=== PATIENT | female | born 1935 | race Caucasian/White ===

== ENCOUNTER 2017-12-20 15:58 | Inpatient (IN) | payer OTHER, MEDICARE ==
[~2017-12-20] VITALS: Ht 160 cm; Wt 44.3 kg
[2017-12-20] VITALS (17 sets, daily range): BP systolic 91–144; BP diastolic 52–100
--- NOTE | ~2017-12-20 | HC ---
[facility] [place] [address] CONSULTATION Name: SHANTELL YO Room #: 216-P [facility] IN M.R.#: [id number] Admission: 12/20/17 Attend Phys: Giancarlo Epps MD Discharge: 01/01/18 Date of : 34 Report #: [id number] THIS REPORT FOR: //name// CC: Giancarlo Epps REASON FOR CONSULTATION: I was asked to evaluate concerning septic shock. HISTORY OF PRESENT ILLNESS: The patient is an 82-year-old, lives at [facility]. Presents to the Emergency Room with a several-week history of progressive shortness of breath. She had had intermittent cough. She presents to the Emergency Room for such symptoms. Denies chest pain, nausea, vomiting, diarrhea, fever or chills. She was a poor historian in the Emergency Room. She was brought in by EMS. She has a history of atrial fibrillation and cardiomyopathy. In the Emergency Room, she was intubated now, on the ventilator, found to be in rapid AFib. Given fluids through the night for suspected sepsis. Urine output has improved some. No diarrhea or vomiting. No report of rash or decubiti. ALLERGIES: None known, although INTOLERANT WITH STEROIDS WITH FLUID RETENTION. MEDICATIONS: Prior to her admission were digoxin; Pradaxa; aspirin; carvedilol; tramadol; was given vancomycin, Zosyn and Levaquin; Cardizem; and amiodarone. PAST MEDICAL HISTORY: Atrial fibrillation, cardiomyopathy, hypertension, spinal stenosis. FAMILY HISTORY: Noncontributory. SOCIAL HISTORY: She does not know about her tobacco use. She does use alcohol. REVIEW OF SYSTEMS: The patient unable to give any review of systems. PHYSICAL EXAMINATION: VITAL SIGNS: Currently afebrile, blood pressure 85-90 systolic with a MAP of 64, heart rate in the 140s, atrial fib, CVP 15 on FIO2 of 60%. GENERAL: The patient does arouse. She does have a right IJ catheter in place. When awakened, seems to be reasonably comfortable. Denies any pain. HEENT: Unremarkable with oral intubation. NECK: Supple. No adenopathy. LUNGS: Crackles heard posteriorly at bases bilaterally. CARDIOVASCULAR: Heart was tachycardic and irregular. ABDOMEN: Soft, nontender, no hepatosplenomegaly or mass. GENITOURINARY: External genitalia unremarkable with indwelling Giron catheter. EXTREMITIES: Unremarkable with no peripheral edema. LABORATORY STUDIES: Sodium 145, potassium 3.6, bicarbonate 23, creatinine 1.6, lactate 3.2 down from 6.6 earlier. Procalcitonin 0.25. CPK 260, AST 2421, ALT [address] [address] CONSULTATION Name: SHANTELL YO Room #: 216-P [facility] IN M.R.#: [id number] Admission: 12/20/17 Attend Phys: Giancarlo Epps MD Discharge: 01/01/18 Date of : 34 Report #: [id number], bilirubin 3.2, alkaline phosphatase 123. Hemoglobin 11.4; platelet count 135,000; white count 19,000 with 88% segs; 3% bands. Urinalysis unremarkable. BNP was 24,000. Chest x-ray, bilateral pulmonary congestion. IMPRESSION: Acute respiratory failure with shock due to sepsis and possibly cardiogenic in nature. She has bilateral pulmonary infiltrates, most consistent with edema. Cannot yet rule out pneumonia. She has acute renal failure, elevated troponin, hepatitis. Cause of her elevated liver enzymes is yet to be determined. Considerations include drugs and alcohol, passive congestion or shock liver. RECOMMENDATION: We will check infectious workup including viral respiratory panel; blood; urine and sputum cultures; urine antigens; hepatitis A, B and C serology; drug screen; and serial enzymes. Continue with broad antibiotic coverage. Full support. Discussed with nursing at the bedside. ADDENDUM. DATE OF CONSULTATION: 12/21/2017. <ELECTRONICALLY SIGNED> By: Jimi Smith MD 05/28/18 1446 0819 0841 Jimi Smith MD /nt
--- NOTE | ~2017-12-20 | CRIT ---
[facility] [place] [address] CRITICAL CARE NOTE Name: SHANTELL YO Room #: 239-P ADM IN M.R.#: [id number] Admission: 12/20/17 Attend Phys: Giancarlo Epps MD Discharge: Date of : 34 Report #: [id number] THIS REPORT FOR: //name// CC: Giancarlo Epps MD DATE OF SERVICE: 12/23/2017 HISTORY OF PRESENT ILLNESS: The patient is a pleasant 82-year-old female who had been asked to see for further evaluation of her elevated liver tests. She originally presented to [facility] with profound sepsis and respiratory failure. Her medical history is notable for atrial fibrillation, congestive heart failure, cardiomyopathy, hypertension, spinal stenosis and history of alcohol abuse. FAMILY HISTORY: Noncontributory. SOCIAL HISTORY: The chart reports decades of alcohol abuse without further detail. MEDICATIONS: On presentation, digoxin, Pradaxa, aspirin, carvedilol, and Ultram. REVIEW OF SYSTEMS: Negative for weight loss, weakness or fatigue. She denies head, eyes, ears, nose or throat complaints. She denies chest pain, chest palpitation, chest pressure, cough, shortness of breath, wheezing, genitourinary, musculoskeletal or neuropsychiatric complaints beyond that mentioned above. PHYSICAL EXAMINATION: GENERAL: The patient is afebrile. VITAL SIGNS: Stable. HEENT: Nonicteric. NECK: No JVD, thyromegaly or bruits. CARDIOVASCULAR: Irregularly irregular. LUNGS: Diminished anteriorly. ABDOMEN: Soft, nondistended, nontender. Normoactive bowel sounds. No hepatosplenomegaly. No stigmata of chronic liver disease. NEUROLOGICAL: Deferred. RECTAL: Deferred. PERTINENT LABORATORY DATA: Include serum chemistry notable for chloride 102, venous bicarbonate 17, BUN 47, creatinine 1.7, AST 24 and 21, ALT 16 and 11, alkaline phosphatase 123. Her total bilirubin on presentation was 3.2. White count 14.5, hemoglobin 12.0, platelet count 150. Her most recent bilirubin is 2.3 and her most recent ALT 701 and AST 1577. INR was 2.0. The rest of her [facility] [address] [place] [address] CRITICAL CARE NOTE Name: SHANTELL YO Room #: 239-P ADM IN M.R.#: [id number] Admission: 12/20/17 Attend Phys: Giancarlo Epps MD Discharge: Date of : 34 Report #: [id number] x-rays and lab work were reviewed. She had abdominal ultrasound showing gallbladder sludge with diffuse gallbladder wall thickening, abdominal ascites. No ductal dilatation. ASSESSMENT AND PLAN: In summary, the patient has a clinical presentation consistent with resolving shock liver. I expect improvement to her baseline over the next 48-72 hours. This is probably just a representation of her systemic sepsis and dehydration and prerenal status. I would recommend following her liver tests every day or every other day and further workup from a hepatic standpoint if the baseline is significantly elevated. At this point, I do not see any evidence of acute cholecystitis or biliary obstruction. We will follow concurrently. Thanks for allowing us to participate in the care of this nice woman. <ELECTRONICALLY SIGNED> By: Domo Archer MD 12/27/17 0919 1400 32 Kirill Nickerson MD /nt
--- NOTE | ~2017-12-20 | 2DMMODE ---
Former[facility] [address] [place] [address] 2 D/M-MODE ECHOCARDIOGRAM Name: SHANTELL YO Room #: 239-P [facility] IN .R.#: [id number] Admission: 12/20/17 Attend Phys: Giancarlo Epps, Discharge: Date of : 34 Date of Service: 12/21/17 1044 Report #: [id number] THIS REPORT FOR: //name// APPROVED REPORT Study performed: 12/21/2017 09:45:13 EXAM: Comprehensive 2D, Doppler, and color-flow Echocardiogram Patient Location: ICU Room #: 239 Status: routine BSA: 1.49 HR: 104 bpm BP: 107/62 mmHg Other Information Study Quality: Good Indications Atrial Fibrillation Dyspnea Hypertension/HDD 2D Dimensions RVDd: 42.17 mm LVEF(%): 12.69 (>50%) IVSd: 10.01 (7-11mm) LVOT Diam: 18.98 (18-24mm) LVDd: 44.66 mm PWd: 10.05 (7-11mm) Ascending Ao: 36.06 (22-36mm) LVDs: 42.16 (25-40mm) Aortic Root: 29.47 mm IVC: 24.00 mm Livingston's LVEF: 12.69 % Volumes Left Atrial Volume (Systole) Single Plane 4CH: 51.89 mL Single Plane 2CH: 63.85 mL LA ESV Index: 47.00 mL/m2 Aortic Valve AoV Peak Teodoro.: 1.47 m/s AO Peak Gr.: 8.68 mmHg LVOT Max P.36 mmHg LVOT Max V: 0.73 m/s AN Vmax: 1.39 cm2 AI Vmax: 3.54 m/s AI [place]: 2.01 m/s2 AI PHT: 512.78 ms Formerly [facility] [employer] [place] [address] 2 D/M-MODE ECHOCARDIOGRAM Name: SHANTELL YO Room #: 239-P [facility] IN M.R.#: [id number] Admission: 12/20/17 Attend Phys: Giancarlo Epps, Discharge: Date of : 34 Date of Service: 12/21/17 1044 Report #: [id number] Pulmonary Valve PV Peak Teodoro.: 0.79 m/s PV Peak Gr.: 2.50 mmHg Tricuspid Valve TR Peak Teodoro.: 2.86 m/s TR Peak Gr.: 32.77 mmHg PA Pressure: 47.00 mmHg Left Ventricle The left ventricle is normal size. There is global hypokinesis of the left ventricle. There is normal left ventricular wall thickness. Left ventricular ejection fraction is severely decreased. LVEF is 15-20%. This study is not technically sufficient to allow evaluation of the LV diastolic function due to atrial fibrillation. Right Ventricle Right ventricle is at the upper limits of normal. Right ventricle is hypokinetic. Atria Left atrium is dilated. Right atrium is dilated. Aortic Valve The aortic valve is normal in structure. Aortic valve is calcified. Mild to moderate aortic regurgitation. There is no aortic valvular stenosis. Mitral Valve The mitral valve is normal in structure. There is mitral annular calcification. Mild to moderate mitral regurgitation. No evidence of mitral valve stenosis. Tricuspid Valve The tricuspid valve is normal in structure. There is moderate tricuspid regurgitation. Estimated PAP 47 mmHg. There is moderate pulmonary hypertension. Pulmonic Valve The pulmonary valve is normal in structure. Trace pulmonic regurgitation. Great Vessels The aortic root is normal in size. The inferior vena cava is dilated with no inspiratory collapse. [facility] [address] [place] [address] 2 D/M-MODE ECHOCARDIOGRAM Name: SHANTELL YO Room #: 239-P [facility] IN .R.#: [id number] Admission: 12/20/17 Attend Phys: Giancarlo Epps, Discharge: Date of : 34 Date of Service: 12/21/17 1044 Report #: [id number] Pericardium There is no pericardial effusion. <Conclusion> The left ventricle is normal size. LVEF is 15-20%. There is global hypokinesis of the left ventricle. Right ventricle is at the upper limits of normal. Left atrium is dilated. Right atrium is dilated. The aortic valve is normal in structure. Aortic valve is calcified. Mild to moderate aortic regurgitation. The mitral valve is normal in structure. There is mitral annular calcification. Mild to moderate mitral regurgitation. The tricuspid valve is normal in structure. There is moderate tricuspid regurgitation. Estimated PAP 47 mmHg. There is moderate pulmonary hypertension. There is no pericardial effusion. <ELECTRONICALLY SIGNED> By: Herrera Zamora MD 12/21/17 1044 1044 1044 Herrera Zamora MD /INF
--- NOTE | ~2017-12-20 | HC ---
[facility] [address] [place] [address] CONSULTATION Name: SRINATHSHANTELL Room #: 216-P [facility] IN M.R.#: [id number] Admission: 12/20/17 Attend Phys: Giancarlo Epps MD Discharge: 01/01/18 Date of : 34 Report #: [id number] THIS REPORT FOR: //name// CC: Giancarlo Epps DATE OF SERVICE: 12/21/2017 ADDENDUM. DATE OF CONSULTATION: 12/21/2017. <ELECTRONICALLY SIGNED> By: Jimi Smith MD 05/09/18 2033 1127 1217 Jimi Smith MD /nt
--- NOTE | ~2017-12-20 | EKG ---
[address] [address] ELECTROCARDIOGRAM REPORT Name: SHANTELL YO Room #: 239-P ADM IN M.R.#: [id number] Admission: 12/20/17 Attend Phys: Giancarlo Epps MD Discharge: Date of : 34 Report #: [id number] THIS REPORT FOR: //name// [facility] Test Date: 2017-12-24 Test Time: 03:48:45 Pat Name: SHANTELL YO Department: Room: 239 P Gender: F Manager Critical Care: Marilee Thompson : 1935 Requested By: Himanshu Harris Order Number: [id number] MD: Ander Nguyen Measurements Intervals [place] Rate: 74 P: 42 [place]: 176 QRS: -37 QRSD: 135 T: 226 QT: 579 QTc: 643 Interpretive Statements Sinus rhythm Atrial premature complexes in couplets Compared to ECG 12/22/2017 22:05:42 Atrial premature complex(es) now present Electronically Signed On 12-24-2017 10:25:22 SECURITIES CONSULTANT by Ander Nguyen [email or web address] <ELECTRONICALLY SIGNED> By: Ander Nguyen MD 12/24/17 1025 0348 0348 Ander Nguyen MD /EPI
--- NOTE | ~2017-12-20 | HC ---
[facility] [place] [employer] [place] [address] CONSULTATION Name: SHANTELL YO Room #: 239-P ADM IN M.R.#: [id number] Admission: 12/20/17 Attend Phys: Giancarlo Epps MD Discharge: Date of : 34 Report #: [id number] THIS REPORT FOR: //name// CC: Giancarlo Epps DATE OF SERVICE: 12/20/2017 REASON FOR CONSULTATION: Acute respiratory failure. Forty minutes critical care time. IMPRESSION: 1. Acute respiratory failure. 2. Sepsis. 3. Atrial fibrillation with rapid ventricular response. 4. Bilateral pulmonary infiltrates. 5. Acute kidney injury. 6. Elevated D-dimer. 7. Elevated troponin. 8. Encephalopathy. 9. Coagulopathy. PLAN: 1. ICU protocol. 2. Ventilator protocol. 3. Adjust ventilator. 4. PICC line to monitor status. 5. ID consult. 6. Cardiology to see. 7. Aerosol therapy. HISTORY OF PRESENT ILLNESS: An 82-year-old female comes in with 2 days of worsening shortness of breath, peripheral edema and cough. Resides at [facility]. No nausea or vomiting. Positive history in 2013, had alcohol withdrawal, atrial fibrillation with rapid ventricular response, hypertension, COPD and possible aspiration pneumonia. ALLERGIES: TO CORTICOSTEROIDS AND SEDATION. HOME MEDICATIONS: Included digoxin, Pradaxa, aspirin, Coreg and tramadol. SOCIAL HISTORY: Positive ETOH per chart. REVIEW OF SYSTEMS: Unobtainable. However, history of spinal stenosis, syncope and hypertension. [facility] [place] [address] CONSULTATION Name: SHANTELL YO Room #: 239- ADM IN M.R.#: [id number] Admission: 12/20/17 Attend Phys: Giancarlo Epps MD Discharge: Date of : 34 Report #: [id number] FAMILY HISTORY: Unobtainable. PHYSICAL EXAMINATION: GENERAL: On exam, the patient intubated. VITAL SIGNS: Temperature 97.8, pulse fluctuating 100s to 140s, respirations 20 and BP 105/66. Intubated. LUNGS: Crackles bilaterally. HEART: Irregular. ABDOMEN: Bowel sounds present. EXTREMITIES: Showed edema, sedated. LABORATORY DATA: Procalcitonin 0.25. INR 2, PTT 30. A pH of 7.0166, pCO2 of 43 and pO2 of 58 on 100%, rate of 14, tidal volume 500, PEEP of 5. U/A showed bacteria 1-9. CMP showed SGOT 2421, SGPT 611 and alkaline phosphatase 123. BUN 47 and creatinine 1.7. Lactate 8.2. D-dimer 2.8. ProBNP 24,146. Influenza negative. Chest x-ray, bilateral infiltrates. White count 13.8, hemoglobin 13.4 and platelets 185,000. <ELECTRONICALLY SIGNED> By: Regla Fagan MD 12/21/17 1941 1905 0000 Regla Fagan MD /nt
--- NOTE | ~2017-12-20 | EKG ---
[place] [address] [address] [place] [address] ELECTROCARDIOGRAM REPORT Name: SHANTELL YO Room #: 239-P ADM IN M.R.#: [id number] Admission: 12/20/17 Attend Phys: Giancarlo Epps MD Discharge: Date of : 34 Report #: [id number] THIS REPORT FOR: //name// [facility] ED Test Date: 2017-12-20 Test Time: 16:06:03 Pat Name: SHANTELL YO Department: Room: 239 P Gender: F Crossbow Maker: KATY : 1935 Requested By: Giancarlo Epps Order Number: [id number] MD: Demario Kingsley Measurements Intervals [place] Rate: 167 P: 0 [place]: 112 QRS: -53 QRSD: 123 T: 113 QT: 295 QTc: 492 Interpretive Statements Atrial fibrillation with a rapid ventricular response Nonspecific IVCD with LAD Compared to ECG 01/27/2014 07:48:54 Intraventricular conduction delay now present Electronically Signed On 12-21-2017 15:58:46 AUTOMATIC CLIPPER AND STRIPPER by Demario Kingsley [email or web address] <ELECTRONICALLY SIGNED> By: Demario Kingsley MD, [facility] 12/21/17 1558 1606 160 Demario Kingsley MD, [facility] /EPI
--- NOTE | ~2017-12-20 | D ---
[facility] [address] [place] [address] DISCHARGE SUMMARY Name: SHANTELL YO Room #: 216-P [facility] IN M.R.#: [id number] Admission: 12/20/17 Attend Phys: Giancarlo Epps MD Discharge: 01/01/18 Date of : 34 Report #: [id number] THIS REPORT FOR: //name// CC: Giancarlo Epps DATE OF SERVICE: 01/01/2018 ADMIT DIAGNOSES: Severe sepsis, liver failure, acute kidney injury. DISCHARGE DIAGNOSES: Severe sepsis, liver failure, acute kidney injury. The patient was admitted with the above diagnoses of sepsis and JARED. DICTATION ENDS HERE. <ELECTRONICALLY SIGNED> By: Giancarlo Epps MD 03/10/18 0803 0740 1143 Giancarlo Epps MD /nt
--- NOTE | ~2017-12-20 | EKG ---
[address] [address] ELECTROCARDIOGRAM REPORT Name: SHANTELL YO Room #: 239-P ADM IN M.R.#: [id number] Admission: 12/20/17 Attend Phys: Giancarlo Epps MD Discharge: Date of : 34 Report #: [id number] THIS REPORT FOR: //name// [facility] Test Date: 2017-12-22 Test Time: 22:05:42 Pat Name: SHANTELL YO Department: Room: 239 P Gender: F Advanced Developer: MAURICE : 1935 Requested By: Giancarlo Epps Order Number: [id number] MD: Ander Nguyen Measurements Intervals [place] Rate: 143 P: [place]: QRS: -44 QRSD: 119 T: 156 QT: 326 QTc: 503 Interpretive Statements Possible Atrial fibrillation Baseline wander making interpretation challenging Compared to ECG 12/21/2017 05:49:10 Electronically Signed On 12-23-2017 13:26:40 MAILING MACHINE OPERATOR by Ander Nguyen [email or web address] <ELECTRONICALLY SIGNED> By: Ander Nguyen MD 12/23/17 1326 04 04 Ander Nguyen MD /YAHIR
--- NOTE | ~2017-12-20 | EKG ---
[place] [address] [facility] [address] [place] [address] ELECTROCARDIOGRAM REPORT Name: SHANTELL YO Room #: 239-P ADM IN M.R.#: [id number] Admission: 12/20/17 Attend Phys: Giancarlo Epps MD Discharge: Date of : 34 Report #: [id number] THIS REPORT FOR: //name// [facility] ED Test Date: 2017-12-20 Test Time: 16:08:54 Pat Name: SHANTELL YO Department: Room: 239 Gender: F Commercial Real Estate Assistant: hans : 1935 Requested By: Damaso Valentino Order Number: [id number] MD: Demario Kingsley Measurements Intervals [place] Rate: 168 P: 31 [place]: 152 QRS: -52 QRSD: 125 T: 117 QT: 299 QTc: 500 Interpretive Statements Atrial fibrillation with a rapid ventricular response Left bundle branch block Compared to ECG 01/27/2014 07:48:54 Heart rate has increased left bundle branch block is now present Electronically Signed On 12-21-2017 8:10:39 LEGAL RECOVERY SPECIALIST by Demario Kingsley [email or web address] <ELECTRONICALLY SIGNED> By: Demario Kingsley MD, [facility] 12/21/17 0810 1608 1608 Demario Kingsley MD, [facility] /EPI
--- NOTE | ~2017-12-20 | EKG ---
[place] [address] [address] [place] [address] ELECTROCARDIOGRAM REPORT Name: SHANTELL YO Room #: 239-P ADM IN M.R.#: [id number] Admission: 12/20/17 Attend Phys: Giancarlo Epps MD Discharge: Date of : 34 Report #: [id number] THIS REPORT FOR: //name// [facility] Test Date: 2017-12-21 Test Time: 05:49:10 Pat Name: SHANTELL YO Department: Room: 239 P Gender: F Assistant Department Manager: Marilee Thompson : 1935 Requested By: Herrera Zamora Order Number: [id number] MD: Demario Kingsley Measurements Intervals [place] Rate: 161 P: 0 [place]: 130 QRS: -65 QRSD: 122 T: 102 QT: 344 QTc: 563 Interpretive Statements Wide-QRS tachycardia IVCD Compared to ECG 01/27/2014 07:48:54 Atrial fibrillation no longer present Atrial fibrillation is no longer present Electronically Signed On 12-21-2017 8:44:56 BACTERIOLOGIST FOOD by Demario Kingsley [email or web address] <ELECTRONICALLY SIGNED> By: Demario Kingsley MD, [facility] 12/21/17 0844 0549 0549 Demario Kingsley MD, [facility] /EPI
[~2017-12-20 15:58] MED LIST: ACETAMINOPHEN325 M1 PO; ADULT LOW DOSE81 MG PO; ALBUTEROL2.5 MG/31 INH; ASPIRIN325 PO; B COMPLEX-VITA1 EACH PO; CARVEDILOL6.25 MG PO; CLONIDINE0.1 PO; COREG OR; COREG PO; COUMADIN 5 MG TA5 M1 PO; DESYREL50 MG PO; DILTIAZEM 24HR180 MG PO; DILTIAZEM ER240 M1 PO; DITROPAN XL5 M1 PO; FOSAMAX 70 MG T70 M1 PO; LANOXIN 0.120.125 M1 PO; LISINOPRIL20 MG PO; LISINOPRIL5 MG PO; MUCINEX600 MG PO; MULTIVITAMINS PO; NORCO 5-325 TA1 EACH PO; ONDANSETRON HCL4 M3 PO; PRADAXA150 MG OR; PRADAXA75 MG PO; QUETIAPINE FUMA25 MG PO; TRAMADOL 50 MG50 MG PO; TRIPLE ANTIBIO1 EACH TOP; VITAMIN B-1100 M1 PO; VITAMINC500 PO; [UNRECOGNIZED DRUG - CODE] PO
[2017-12-20 16:23] LABS: HEMATOCRIT 42.3 % (37.0-47.0); HEMOGLOBIN 13.4 gm/dL (12.0-15.0); MCH 27.7 pg (26.0-34.0); MCHC 31.7 g/dL (28.0-37.0); MCV 87.4 fL (80.0-100.0); RBC 4.83 mil/uL (4.20-5.00); WBC 13.8 thou/uL (4.0-11.0)
[2017-12-20 16:33] LABS: CALCIUM 9.5 mg/dL (8.5-10.1); CREATININE 1.7 mg/dL (0.6-1.0); POTASSIUM 4.7 mmol/L (3.5-5.1)
[2017-12-20 16:51] LABS: ALBUMIN 3.6 g/dL (3.4-5.0); TOTAL BILIRUBIN 3.2 mg/dL (<0.1-1.0); TOTAL PROTEIN 6.9 g/dL (6.4-8.2)
[2017-12-20 16:56] LABS: TROPONIN-I 2.79 ng/mL (<0.06)
[2017-12-20 17:18] LABS: URINE BILIRUBIN 2+ (Negative); URINE BLOOD TRACE (Negative); URINE CLARITY CLEAR; URINE COLOR YELLOW; URINE GLUCOSE-RANDOM* NEGATIVE (Negative); URINE KETONES TRACE (Negative); URINE LEUKOCYTES-REFLEX NEGATIVE (Negative); URINE NITRITE-REFLEX NEGATIVE (Negative); URINE PROTEIN (DIPSTICK) 2+ (Negative); URINE SPECIFIC GRAVITY >= 1.030 (1.005-1.035)
[2017-12-20 17:26] LABS: ICTOTEST (BILI CONFIRMATORY) Positive (Negative)
[2017-12-20 17:36] LABS: BACTERIA-REFLEX 1-9 Few /HPF (None Seen); COARSE GRANULAR CASTS 0-3 Few /LPF (None Seen); CRYSTALS None Seen /LPF (None Seen); HYALINE CASTS >10 Many /LPF (None Seen); SQUAMOUS 4-10 Moderate /LPF (0-3); URINE RBC 0-2 Rare /HPF (0-2); URINE WBC-REFLEX 0-5 Rare /HPF (0-5)
[2017-12-20 18:16] LABS: BE(vivo) -17.8 mmol/L (-2 to +3); PCO2 42.7 mmHg (35.0-45.0); PO2 57.8 mmHg (80.0-100.0); sO2 77.8 % (92.0-98.0)
[2017-12-20 18:17] LABS: pH 7.066 (7.360-7.450)
[2017-12-20 18:24] LABS: APTT 30.3 Seconds (24.5-32.8); FIBRINOGEN 192.7 mg/dL (210-360); PROTIME 20.2 Seconds (9.3-11.4)
[2017-12-20 21:51] LABS: HEMATOCRIT 37.7 % (37.0-47.0); HEMOGLOBIN 11.8 gm/dL (12.0-15.0); MCV 88.5 fL (80.0-100.0); RBC 4.26 mil/uL (4.20-5.00)
[2017-12-20 21:53] LABS: MCH 27.6 pg (26.0-34.0); MCHC 31.2 g/dL (28.0-37.0); PLATELET COUNT 145 thou/uL (150-400); RDW 16.6 % (10.5-14.5); WBC 19.5 thou/uL (4.0-11.0)
[2017-12-20 21:58] LABS: CALCIUM 7.7 mg/dL (8.5-10.1); CREATININE 1.8 mg/dL (0.6-1.0); POTASSIUM 4.3 mmol/L (3.5-5.1)
[2017-12-20 22:17] LABS: ABSOLUTE NEUTROPHILS 16.6 thou/uL (1.4-8.2)
[2017-12-20 22:18] LABS: BURR CELLS 2+; SCHISTOCYTES 1+
[2017-12-20 22:19] LABS: ANISOCYTOSIS 1+
[2017-12-20 22:56] LABS: BE(vivo) -12.2 mmol/L (-2 to +3); HCO3 13.6 mmol/L (22.0-26.0); PO2 234.9 mmHg (80.0-100.0); sO2 99.4 % (92.0-98.0)
[2017-12-21] VITALS (90 sets, daily range): BP systolic 77–146; BP diastolic 44–125
[2017-12-21 01:06] LABS: CALCIUM 7.5 mg/dL (8.5-10.1); CREATININE 1.7 mg/dL (0.6-1.0); POTASSIUM 3.8 mmol/L (3.5-5.1)
[2017-12-21 04:48] LABS: ABSOLUTE NEUTROPHILS 16.9 thou/uL (1.4-8.2); BASOPHILS 0.5 % (0.0-2.0); EOSINOPHILS 0.3 % (0.0-3.0); HEMATOCRIT 36.3 % (37.0-47.0); HEMOGLOBIN 11.4 gm/dL (12.0-15.0); LYMPHOCYTES 3.3 % (24.0-44.0); MCH 27.6 pg (26.0-34.0); MCHC 31.4 g/dL (28.0-37.0); PLATELET COUNT 135 thou/uL (150-400); POLYS 88.9 % (36.0-66.0); RBC 4.12 mil/uL (4.20-5.00); RDW 15.8 % (10.5-14.5)
[2017-12-21 04:56] LABS: CALCIUM 7.4 mg/dL (8.5-10.1); CREATININE 1.6 mg/dL (0.6-1.0); POTASSIUM 3.6 mmol/L (3.5-5.1)
[2017-12-21 20:23] LABS: AMP/METHAMP Negative (Negative); BARBITURATES Negative (Negative); BENZODIAZEPINES POSITIVE (Negative); COCAINE Negative (Negative); METHADONE Negative (Negative); OPIATES POSITIVE (Negative); PCP Negative (Negative)
[2017-12-22] VITALS (74 sets, daily range): BP systolic 80–144; BP diastolic 50–112
[2017-12-22 01:06] LABS: HAV IgM AB (ANTI-HAV IgM) Negative (Negative); HEPATITIS B SURFACE AG Negative (Negative); HEPATITIS C VIRUS AB 0.2 (0.0-0.9)
[2017-12-22 05:02] LABS: ABSOLUTE NEUTROPHILS 15.6 thou/uL (1.4-8.2); BASOPHILS 0.4 % (0.0-2.0); EOSINOPHILS 0.2 % (0.0-3.0); HEMATOCRIT 36.8 % (37.0-47.0); HEMOGLOBIN 11.7 gm/dL (12.0-15.0); LYMPHOCYTES 5.2 % (24.0-44.0); MCH 27.6 pg (26.0-34.0); MCHC 31.9 g/dL (28.0-37.0); MCV 86.3 fL (80.0-100.0); MONOCYTES 7.5 % (1.0-8.0); PLATELET COUNT 161 thou/uL (150-400); POLYS 86.7 % (36.0-66.0); RBC 4.26 mil/uL (4.20-5.00); RDW 15.5 % (10.5-14.5)
[2017-12-22 09:01] LABS: BE(vivo) -1.9 mmol/L (-2 to +3); HCO3 20.9 mmol/L (22.0-26.0); PCO2 30.3 mmHg (35.0-45.0); PO2 74.9 mmHg (80.0-100.0); pH 7.457 (7.360-7.450); sO2 95.9 % (92.0-98.0)
[2017-12-22 22:48] LABS: CALCIUM 8.2 mg/dL (8.5-10.1); CREATININE 1.8 mg/dL (0.6-1.0); POTASSIUM 3.2 mmol/L (3.5-5.1)
[2017-12-23] VITALS (21 sets, daily range): BP systolic 83–130; BP diastolic 55–99
[2017-12-23 05:27] LABS: BE(vivo) -0.3 mmol/L (-2 to +3); HCO3 22.8 mmol/L (22.0-26.0); PCO2 32.7 mmHg (35.0-45.0); PO2 108.2 mmHg (80.0-100.0); pH 7.462 (7.360-7.450); sO2 98.2 % (92.0-98.0)
[2017-12-23 06:34] LABS: ABSOLUTE NEUTROPHILS 12.4 thou/uL (1.4-8.2); BASOPHILS 0.2 % (0.0-2.0); EOSINOPHILS 0.1 % (0.0-3.0); HEMATOCRIT 37.7 % (37.0-47.0); LYMPHOCYTES 4.2 % (24.0-44.0); MCH 27.2 pg (26.0-34.0); MCHC 31.7 g/dL (28.0-37.0); MCV 85.5 fL (80.0-100.0); MONOCYTES 10.3 % (1.0-8.0); PLATELET COUNT 150 thou/uL (150-400); POLYS 85.2 % (36.0-66.0); RBC 4.41 mil/uL (4.20-5.00); RDW 15.9 % (10.5-14.5); WBC 14.5 thou/uL (4.0-11.0)
[2017-12-23 06:49] LABS: ALBUMIN 2.5 g/dL (3.4-5.0); CALCIUM 7.8 mg/dL (8.5-10.1); CREATININE 1.6 mg/dL (0.6-1.0); TOTAL BILIRUBIN 2.3 mg/dL (<0.1-1.0); TOTAL PROTEIN 5.4 g/dL (6.4-8.2)
[2017-12-23 06:50] LABS: POTASSIUM 2.9 mmol/L (3.5-5.1)
[2017-12-23 09:32] LABS: BE(vivo) -0.1 mmol/L (-2 to +3); HCO3 22.9 mmol/L (22.0-26.0); PCO2 32.4 mmHg (35.0-45.0); PO2 106.9 mmHg (80.0-100.0); pH 7.467 (7.360-7.450); sO2 98.2 % (92.0-98.0)
[2017-12-23 14:10] LABS: MAGNESIUM 2.6 mg/dL (1.8-2.4); POTASSIUM 3.7 mmol/L (3.5-5.1)
[2017-12-24] VITALS (18 sets, daily range): BP systolic 100–142; BP diastolic 57–85
[2017-12-24 05:27] LABS: HEMATOCRIT 37.4 % (37.0-47.0); HEMOGLOBIN 12.1 gm/dL (12.0-15.0); MCH 27.5 pg (26.0-34.0); MCHC 32.3 g/dL (28.0-37.0); MCV 85.4 fL (80.0-100.0); RBC 4.38 mil/uL (4.20-5.00); WBC 9.9 thou/uL (4.0-11.0)
[2017-12-24 06:11] LABS: CALCIUM 8.4 mg/dL (8.5-10.1)
[2017-12-24 06:21] LABS: CREATININE 1.7 mg/dL (0.6-1.0)
[2017-12-25] VITALS (23 sets, daily range): BP systolic 95–168; BP diastolic 58–130
[2017-12-25 05:25] LABS: CALCIUM 8.8 mg/dL (8.5-10.1); CREATININE 1.7 mg/dL (0.6-1.0); POTASSIUM 3.1 mmol/L (3.5-5.1)
[2017-12-25 05:38] LABS: HEMATOCRIT 37.4 % (37.0-47.0); MCH 27.2 pg (26.0-34.0); MCV 84.9 fL (80.0-100.0); RBC 4.4 mil/uL (4.20-5.00); RDW 15.8 % (10.5-14.5); WBC 11.3 thou/uL (4.0-11.0)
[2017-12-26] VITALS (26 sets, daily range): BP systolic 97–156; BP diastolic 41–122
[2017-12-26 00:06] LABS: ADENOVIRUS Negative (Negative); INFLUENZA A Negative (Negative); INFLUENZA B Negative (Negative); METAPNEUMOVIRUS Negative (Negative); PARAINFLUENZA 1 Negative (Negative); PARAINFLUENZA 2 Negative (Negative); PARAINFLUENZA 3 Negative (Negative); RHINOVIRUS Negative (Negative); RSV A Negative (Negative); RSV B Negative (Negative)
[2017-12-26 07:14] LABS: HEMATOCRIT 40.4 % (37.0-47.0); HEMOGLOBIN 13.1 gm/dL (12.0-15.0); MCH 27.4 pg (26.0-34.0); MCHC 32.4 g/dL (28.0-37.0); MCV 84.5 fL (80.0-100.0); RBC 4.79 mil/uL (4.20-5.00); RDW 15.9 % (10.5-14.5); WBC 10.9 thou/uL (4.0-11.0)
[2017-12-26 07:27] LABS: ALBUMIN 2.8 g/dL (3.4-5.0); TOTAL BILIRUBIN 2.8 mg/dL (<0.1-1.0); TOTAL PROTEIN 6.1 g/dL (6.4-8.2)
[2017-12-26 07:38] LABS: CALCIUM 9.3 mg/dL (8.5-10.1); CREATININE 1.7 mg/dL (0.6-1.0); POTASSIUM 3.5 mmol/L (3.5-5.1)
[2017-12-27] VITALS (20 sets, daily range): BP systolic 90–164; BP diastolic 46–123
[2017-12-27 02:29] LABS: CREATININE 1.8 mg/dL (0.6-1.0); POTASSIUM 3.3 mmol/L (3.5-5.1)
[2017-12-27 10:47] LABS: INR 1.3; PROTIME 12.4 Seconds (9.3-11.4)
[2017-12-28 03:53] LABS: HEMATOCRIT 42.3 % (37.0-47.0); HEMOGLOBIN 13.5 gm/dL (12.0-15.0); MCH 26.7 pg (26.0-34.0); MCHC 31.9 g/dL (28.0-37.0); MCV 83.8 fL (80.0-100.0); RBC 5.05 mil/uL (4.20-5.00); RDW 15.6 % (10.5-14.5); WBC 16.4 thou/uL (4.0-11.0)
[2017-12-28 04:07] LABS: ALBUMIN 2.6 g/dL (3.4-5.0); BUN 50 mg/dL (7-18); CALCIUM 8.5 mg/dL (8.5-10.1); CHLORIDE 100 mmol/L (98-107); CREATININE 1.7 mg/dL (0.6-1.0); DIRECT BILIRUBIN 1.1 mg/dL (<0.1-0.3); GLUCOSE 173 mg/dL (74-106); POTASSIUM 3.1 mmol/L (3.5-5.1); SGOT 79 U/L (15-37); SGPT 524 U/L (30-65); SODIUM 146 mmol/L (136-145); TOTAL BILIRUBIN 1.8 mg/dL (<0.1-1.0); TOTAL PROTEIN 5.5 g/dL (6.4-8.2)
[2017-12-28 04:10] LABS: CO2 > 45 mmol/L (21-32)
[2017-12-28 04:47] LABS: BE(vivo) 18.5 mmol/L (-2 to +3); HCO3 44.3 mmol/L (22.0-26.0); PCO2 53.9 mmHg (35.0-45.0); PO2 101.5 mmHg (80.0-100.0); pH 7.533 (7.360-7.450); sO2 98.1 % (92.0-98.0)
[2017-12-28 04:49] VITALS: BP 129/59
[2017-12-28 09:06] VITALS: BP 159/83
[2017-12-28 11:30] VITALS: BP 128/65
[2017-12-28 12:58] LABS: MAGNESIUM 2.2 mg/dL (1.8-2.4); POTASSIUM 3.1 mmol/L (3.5-5.1)
[2017-12-28 15:40] VITALS: BP 137/80
[2017-12-28 20:00] VITALS: BP 149/74
[2017-12-29 03:48] LABS: INR 1.2; PROTIME 12.2 Seconds (9.3-11.4)
[2017-12-29 03:55] VITALS: BP 142/50
[2017-12-29 04:07] LABS: HEMOGLOBIN 14.3 gm/dL (12.0-15.0); MCH 26.7 pg (26.0-34.0); MCHC 31.8 g/dL (28.0-37.0); RBC 5.36 mil/uL (4.20-5.00); RDW 15.5 % (10.5-14.5); WBC 19.1 thou/uL (4.0-11.0)
[2017-12-29 04:19] LABS: CALCIUM 8.5 mg/dL (8.5-10.1); CREATININE 1.5 mg/dL (0.6-1.0); POTASSIUM 3.1 mmol/L (3.5-5.1); TOTAL BILIRUBIN 1.4 mg/dL (<0.1-1.0); TOTAL PROTEIN 5.7 g/dL (6.4-8.2)
[2017-12-29 07:40] VITALS: BP 147/57
[2017-12-29 13:05] VITALS: BP 147/57
[2017-12-29 16:00] VITALS: BP 143/66
[2017-12-29 19:56] VITALS: BP 125/64
[2017-12-30 04:19] LABS: CALCIUM 8.4 mg/dL (8.5-10.1); CREATININE 1.4 mg/dL (0.6-1.0); POTASSIUM 3.1 mmol/L (3.5-5.1)
[2017-12-30 04:24] LABS: HEMATOCRIT 43.8 % (37.0-47.0); MCH 26.7 pg (26.0-34.0); MCHC 32.1 g/dL (28.0-37.0); MCV 83.2 fL (80.0-100.0); PLATELET COUNT 93 thou/uL (150-400); RBC 5.26 mil/uL (4.20-5.00); RDW 15.3 % (10.5-14.5); WBC 22.3 thou/uL (4.0-11.0)
[2017-12-30 04:39] VITALS: BP 107/58
[2017-12-30 07:34] LABS: ABSOLUTE NEUTROPHILS 19.6 thou/uL (1.4-8.2)
[2017-12-30 07:45] VITALS: BP 140/61
[2017-12-30 19:31] VITALS: BP 143/81
[2017-12-31 08:00] VITALS: BP 142/80
[2017-12-31 20:05] VITALS: BP 139/78
[2018-01-01 03:54] LABS: ALBUMIN 2.7 g/dL (3.4-5.0); DIRECT BILIRUBIN 0.8 mg/dL (<0.1-0.3); TOTAL BILIRUBIN 1.4 mg/dL (<0.1-1.0)
== END 2018-01-01 16:05 | disposition hospice, inpatient (51) | DRG 871 ==
LOC: ER 15:58 → ICU 17:39 → EROBS 17:39 → ICU 20:07 → 2N 12-27 18:26
PROVIDERS: Emergency Medicine; Family Medicine; Internal Medicine Gastroenterology; Internal Medicine Pulmonary Disease; Nurse Practitioner; Specialist
DX: A41.9 Sepsis, unspecified organism (principal); J96.01 Acute respiratory failure with hypoxia; I21.4 Non-ST elevation (NSTEMI) myocardial infarction; J18.9 Pneumonia, unspecified organism; R57.0 Cardiogenic shock; R65.21 Severe sepsis with septic shock; I50.21 Acute systolic (congestive) heart failure; G92 Toxic encephalopathy; I42.9 Cardiomyopathy, unspecified; N17.9 Acute kidney failure, unspecified; D68.9 Coagulation defect, unspecified; E87.0 Hyperosmolality and hypernatremia; R18.8 Other ascites; E46 Unspecified protein-calorie malnutrition; F10.239 Alcohol dependence with withdrawal, unspecified; Z68.1 Body mass index [BMI] 19.9 or less, adult; I48.91 Unspecified atrial fibrillation; K72.90 Hepatic failure, unspecified without coma; I11.0 Hypertensive heart disease with heart failure; R74.0 Nonspecific elevation of levels of transaminase and lactic acid dehydrogenase [LDH]; K75.9 Inflammatory liver disease, unspecified; E11.9 Type 2 diabetes mellitus without complications; E87.6 Hypokalemia; R13.10 Dysphagia, unspecified; K81.9 Cholecystitis, unspecified; Z66 Do not resuscitate; G83.24 Monoplegia of upper limb affecting left nondominant side; Z86.73 Personal history of transient ischemic attack (TIA), and cerebral infarction without residual deficits; Z88.8 Allergy status to other drugs, medicaments and biological substances; Z81.1 Family history of alcohol abuse and dependence; Z79.899 Other long term (current) drug therapy; Z79.01 Long term (current) use of anticoagulants
CPT/HCPCS: 10078; 27000